=== PATIENT | female | born 1980 | race Caucasian/White ===

== ENCOUNTER 2016-12-31 19:50 | Emergency (ER) | payer OTHER ==
[2016-12-31 19:55] VITALS: BP 126/82
[2016-12-31] MEDS ORDERED: Ondansetron ODT TAB* 4 MG SL ONE (20:03)
--- NOTE | 2016-12-31 22:09 | UC ---
Rosaura Tineo Edward, scribed for Daryl Lieberman MD on 12/31/16 at 1958 . General HPI - HPI Summary HPI Summary: 36 y/o female presents to [facility] c/o vomiting every half an hour since 14:00 today. Patient c/o nausea for a few weeks before vomiting today. There is stomach pain right before vomiting and resolves after vomiting. Denies ABD pain , diarrhea, fever, chills, dysuria, vaginal discharge. NKDA. No PMHx. SHx liposuction. LNMP ended yesterday. - History of Current Complaint Chief Complaint: UCGI Stated Complaint: vomiting Hx Obtained From: Patient Onset/Duration: Sudden Onset, Lasting Hours - Since 14:00 today, Still Present Timing: Intermittent Episodes Lasting: - Vomiting every 30 minutes Pain Location at: No ABD pain Associated Signs & Symptoms: Positive: Nausea, Vomiting - Every 30. Associated stomach pain before vomiting, resolves after, Other - Negative: chills, vaginal discharge. Negative: Abdominal Pain, Diarrhea, Dysuria, Fever - Allergy/Home Medications Allergies/Adverse Reactions: Allergies Allergy/AdvReac Type Severity Reaction Status Date / Time CI Pigment Blue 63 Allergy See Comment Verified 12/31/16 19:56 [From Cymbalta] Duloxetine [From Cymbalta] Allergy See Comment Verified 12/31/16 19:56 PMH/Surg Hx/FS Hx/Imm Hx - Additional Past Medical History Additional PMH: Negative: DM, asthma, COPD, cardiac disorders, ulcers, HTN, Thyroid disease Previously Healthy: Yes - Surgical History Surgical History: Yes Surgery Procedure, Year, and Place: rhinoplasty 2004 - Family History Known Family History: Positive: Other - [place] - paternal and maternal grandmothers Negative: Cardiac Disease, Hypertension, Diabetes - Social History Occupation: Employed Full-time Lives: Alone Alcohol Use: Occasionally Substance Use Type: None Smoking Status (MU): Never Smoked Tobacco Review of Systems Constitutional: Negative - No fever, chills Skin: Negative Eyes: Negative ENT: Negative Respiratory: Negative Cardiovascular: Negative Gastrointestinal: Vomiting - Every 30 minutes. Associated stomach pain before vomiting, resolves after, Nausea - For a few weeks, Other - No ABD pain, no diarrhea Genitourinary: Negative - No dysuria, vaginal discharge Motor: Negative Neurovascular: Negative Musculoskeletal: Negative Neurological: Negative Psychological: Negative All Other Systems Reviewed And Are Negative: Yes Physical Exam Triage Information Reviewed: Yes Appearance: Well-Appearing, Ill-Appearing - Mild to moderately Vital Signs: Initial Vital Signs Temp 98.6 F 12/31/16 19:52 Pulse 109 12/31/16 19:52 Resp 18 12/31/16 19:52 BP 126/82 12/31/16 19:52 Pulse Ox 100 12/31/16 19:52 Vital Signs Reviewed: Yes Eyes: Positive: Conjunctiva Clear ENT: Positive: Normal ENT inspection Neck: Positive: Supple, Nontender Respiratory: Positive: Lungs clear, Normal breath sounds, No respiratory distress Cardiovascular: Positive: Tachycardia Abdomen Description: Positive: Nontender, Soft Bowel Sounds: Positive: Present Musculoskeletal Exam: Normal Musculoskeletal: Positive: Strength Intact, ROM Intact Neurological Exam: Normal Neurological: Positive: Alert Psychological Exam: Normal Psychological: Positive: Age Appropriate Behavior Skin Exam: Normal Re-Evaluation - Re-Evaluation 1 Re-Evaluation Time: 20:35 Change: Improved - Declines further workup. Patient will be discharged Course/Dx - Course Course Of Treatment: MEDICATIONS REVIEWED ON VISIT. IMPROVED AFTER ZOFRAN 4MG ODT. PATIENT FELT BETTER AND WISHED TO GO HOME. NO ABDOMINAL PAIN. I ADVISED HER TO GET EVALUATED IN THE ED IF SHE DOES NOT IMPROVE. - Differential Dx - Multi-Symptom Provider Diagnoses: VOMITING DEHYDRATION Discharge - Discharge Plan Condition: Stable Disposition: HOME Prescriptions: Ondansetron ODT TAB* [Zofran 4 MG Odt TAB*] 4 mg PO Q6H PRN #10 tab.odt PRN Reason: Nausea Patient Education Materials: Dehydration (ED), Acute Nausea and Vomiting (ED) Referrals: Dianna Delgado MD [Primary Care Provider] - Additional Instructions: FOLLOW UP WITH YOUR DOCTOR. GET RECHECKED FOR ANY WORSENING OF YOUR CONDITION; PAIN, FEVER, DEHYDRATION, QUESTIONS OR CONCERNS. The documentation as recorded by the Rosaura ward Edward accurately reflects the service I personally performed and the decisions made by me, Daryl Lieberman MD.
== END 2016-12-31 20:44 | disposition home or self-care (01) ==
LOC: UCEAST 19:50
DX: R11.10 Vomiting, unspecified (principal); E86.0 Dehydration
CPT/HCPCS: 99212; A9270-GY; G0463

== ENCOUNTER 2019-05-28 07:30 | Emergency (ER) | payer BC, OTHER ==
[2019-05-28 07:47] VITALS: BP 139/88
--- NOTE | 2019-05-28 08:11 | UC ---
Ear Complaint HPI - HPI Summary HPI Summary: 38-year-old female presents with complaints of left ear pain. Patient states that she has had cold-like symptoms including nasal congestion, runny nose, and occasional nonproductive cough for the past 5 days. Last night started with severe left ear pain that kept waking her from her sleep. Took NyQuil last night with little relief in symptoms. Denies fever, chills, hearing loss, tinnitus, vertigo, dizziness, ear drainage. - History of Current Complaint Chief Complaint: UCEar Stated Complaint: LEFT EAR PAIN, COLD Time Seen by Provider: 05/28/19 08:03 Hx Obtained From: Patient Hx Last Menstrual Period: 04/30/19 Pain Intensity: 8 - Allergies/Home Medications Allergies/Adverse Reactions: Allergies Allergy/AdvReac Type Severity Reaction Status Date / Time duloxetine [From Cymbalta] Allergy panic Verified 05/28/19 07:39 attack and vomiting PMH/Surg Hx/FS Hx/Imm Hx Previously Healthy: Yes - Denies significant PMH - Surgical History Surgical History: Yes Surgery Procedure, Year, and Place: rhinoplasty 2004 - Family History Known Family History: Positive: Cardiac Disease - [place] - paternal and maternal grandmothers - Social History Occupation: Employed Full-time Lives: With Family Alcohol Use: Occasionally Substance Use Type: None Smoking Status (MU): Never Smoked Tobacco Review of Systems All Other Systems Reviewed And Are Negative: Yes Constitutional: Negative: Fever, Chills Skin: Negative: Rash Eyes: Negative: Drainage, Eye Redness ENT: Positive: Ear Ache, Nasal Discharge, Sinus Congestion. Negative: Sore Throat, Sinus Pain/Tenderness Respiratory: Positive: Cough. Negative: Shortness Of Breath Cardiovascular: Negative: Palpitations, Chest Pain Gastrointestinal: Negative: Abdominal Pain, Vomiting, Diarrhea, Nausea Genitourinary: Positive: Negative Musculoskeletal: Positive: Negative Neurological: Positive: Negative Is Patient Immunocompromised?: No Physical Exam - Summary Physical Exam Summary: GENERAL APPEARANCE: Well developed, well nourished, alert and cooperative, and appears to be in no acute distress. EYES: Conjunctiva clear. No drainage. EARS: Right external auditory canal and tympanic membrane intact, opaque, with good cone of light. Left external auditory canal erythematous with mild- moderate edema. TM erythematous with mild effusion. Hearing grossly intact. NOSE: Mild-moderate nasal congestion. No nasal discharge. THROAT: Pharynx normal. No tonsilar inflammation, swelling, exudate, or lesions. Uvula midline. NECK: Neck supple, non-tender without lymphadenopathy. CARDIAC: Normal S1 and S2. No S3, S4 or murmurs. Rhythm is regular. There is no peripheral edema, cyanosis or pallor. Extremities are warm and well perfused. Capillary refill is less than 2 seconds. Peripheral pulses intact. LUNGS: Clear to auscultation without rales, rhonchi, wheezing or diminished breath sounds. ABDOMEN: Positive bowel sounds. Soft, nondistended, nontender. No guarding or rebound. No masses or hepatosplenomegally. MUSKULOSKELETAL: ROM intact to all extremities. No joint erythema or tenderness. Normal muscular development. Normal gait. SKIN: Skin normal color, texture and turgor with no lesions or eruptions. Triage Information Reviewed: Yes Vital Signs: Initial Vital Signs Temp 98.4 F 05/28/19 07:41 Pulse 88 05/28/19 07:41 Resp 16 05/28/19 07:41 BP 139/88 05/28/19 07:41 Pulse Ox 100 05/28/19 07:41 Vital Signs Reviewed: Yes Ear Complaint Course/Dx - Course Course Of Treatment: 38-year-old female presents with complaints of left ear pain. Patient states that she has had cold-like symptoms including nasal congestion, runny nose, and occasional nonproductive cough for the past 5 days. Last night started with severe left ear pain that kept waking her from her sleep. Took NyQuil last night with little relief in symptoms. Denies fever, chills, hearing loss, tinnitus, vertigo, dizziness, ear drainage. Afebrile. VSS. Exam was remarkable for mild-moderate nasal congestion, left external auditory canal erythematous with mild-moderate edema, and left TM erythematous with mild effusion. She was given ibuprofen 600 mg PO for pain. Will treat for left otitis media and otitis externa with amoxicillin 875 mg BID x 10 days as well as Ciprodex 4 drops twice a day for 7 days. She is to follow up with her PCP in 3 days if no improvement in symptoms. Anticipatory guidance and warning symptoms reviewed with patient. Verbalizes understanding and agrees with POC. - Differential Dx/Diagnosis Differential Diagnosis/HQI/PQRI: Otitis Externa, Otitis Media, Perforated TM, URI, Other - Serous otitis, eustachian tube dysfunction Provider Diagnosis: Otitis media of left ear, Otitis externa of left ear Discharge ED - Sign-Out/Discharge Documenting (check all that apply): Patient Departure All imaging exams completed and their final reports reviewed: No Studies - Discharge Plan Condition: Stable Disposition: HOME Prescriptions: Amoxicillin PO (*) [Amoxicillin 875 MG (*)] 875 mg PO BID #20 tab Ciproflox/Dexameth OTIC.SUSP* [Ciprodex OTIC.SUSP*] 4 drop .SEE ORDER BID 7 Days #1 btl Patient Education Materials: Ear Infection (ED) Referrals: Dianna Delgado MD [Primary Care Provider] - 3 Days Additional Instructions: Your history and exam are consistent with an ear infection. We will start you on a course of antibiotics to treat the infection. Start amoxicillin 875 mg 1 tab twice a day for 10 days. Start Ciprodex otic 4 drops into the affected ear twice a day for 7 days. Take acetaminophen (Tylenol) or ibuprofen (Advil, Motrin) according to directions as needed for pain. You were given a dose of ibuprofen in the clinic at around 8:30 am. Follow up with your primary care provider in 3 days if symptoms persist. Seek immediate medical attention in the emergency room if you have fever greater than 100.5 F despite taking acetaminophen or ibuprofen, drainage or bleeding from the ear, loss of hearing, or have any worsening of symptoms. - Billing Disposition and Condition Condition: STABLE Disposition: Home
[2019-05-28] MEDS ORDERED: Ibuprofen TAB* 600 MG PO ONE (08:20)
--- OUTSIDE RECORDS SUMMARY | 2019-05-28 09:00 | XMS REPORT | Continuity of Care Document ---
:1980 External Reference #:[id number] Author Name LEON Wolfe Address [address] [facility] [facility] [place] [address] Care Team Providers Name Role Phone Dianna Delgado M.D. 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 Onset: 06/03/2016 Social History Type Date Description Comments Sex Unknown Tobacco Use Start: Unknown Never Smoked Cigarettes ETOH Use Occasional 2-3x week Tobacco Use Start: Unknown Patient has never smoked Smoking Status Reviewed: 09/07/17 Patient has never smoked Allergies, Adverse Reactions, Alerts Active Allergies Reaction Severity Comments Date Cymbalta panic attack 06/03/2016 Medications Active Medications SIG Qnty Indications Ordering Provider Date Amoxicillin 1 tablet twice 14tabs J02.9 Christopher Contreras, 09/14/2018 875mg Tablets a day for 7 M.D. days. Cheratussin ac 5-10 mL po q 4 118ml Christopher Contreras, 09/14/2018 hrs prn cough M.D. 100-10mg/5ML Syrup mdd 20 mL Buspirone HCL take 1 tablet 60tabs F41.9 Amber Glass, 03/23/2018 7.5mg by mouth twice PATIENT ACCESS DIRECTOR Tablets a day Xanax XR 1 tab once a 30tabs Jennifer Cummings, 0.5mg Tablets ER day as needed [employer] 24HR Allergy Eye Drops 1 gtt each eye Unknown every day Multivitamin Adult 1 by mouth Unknown every day Tablets Immunizations CPT Code Status Date Vaccine Lot # [id number] Given 06/03/2016 Tdap Tetanus, W Pertussis [id number] Given 06/03/2016 Influenza Vac, Quadrivalent, Slit Virus, Im [id number] Vital Signs Date Vital Result Comment 09/14/2018 10:34am BP Systolic 120 mmHg BP Diastolic 90 mmHg Heart Rate 88 /min Body Temperature 101.0 F Respiratory Rate 18 /min Height 63.75 inches 5'3.75" measured 06/03/16 Weight 135.00 lb BMI (Body Mass Index) 23.4 kg/m2 04/20/2018 9:29am BP Systolic 120 mmHg BP Diastolic 82 mmHg Heart Rate 78 /min Body Temperature 97.9 F Respiratory Rate 16 /min Height 63.75 inches 5'3.75" measured 06/03/16 Weight 137.00 lb BMI (Body Mass Index) 23.7 kg/m2 Results Description No Information Available Procedures Description No Information Available Medical Devices Description No Information Available Encounters Description No Information Available Assessments Description No Information Available Plan of Treatment 09/14/2018 - Mahsa Alvarez, PAJ02.9 Acute pharyngitis, unspecifiedNew Medication:Amoxicillin 875 mg - 1 tablet twice a day for 7 days.Comments:Start antibiotic as prescribed. Supportive care. Tylenol or Ibuprofen for body aches, headache, fever. Can try Sambucol (Elderberry) Flu and Cold Relief tablets for sore throat and congestion. Salt water gargles can also offer relief.Rest, lots of fluids, and nutrient dense foods during this time.Daily allergy medications such as OTC loratadine/ Claritin, cetirizine/ Zyrtec, or fexofenadine/ Brigette (the least drowsy option) help decrease mucus production. For congestion: To help decrease postnasal drainage you can try Ipatropium Nasal Solution, 2 sprays each nostril up to 3x/ day as needed.Followed by Guaifenesin OTC Mucinex (1200 mg 2x/day) to help to loosen mucus. This can be especiallyhelpful before bedtime when the cough may be worse. Honey is a powerful mucolytic, 1 tsp 2-3/x day. Hot herbal teas with honey is also an option. Steaming your face in a hot shower or large pot of boiling water can offer relief from congestion. Put a towel over your head to add to the effect and breathe deeply. Add euclyptus, peppermint, mary essential oils or herbs to enhance the effect. Functional Status Description No Information Available Mental Status Description No Information Available Referrals Description No Information Available
--- OUTSIDE RECORDS SUMMARY | 2019-05-28 09:00 | XMS REPORT | Continuity of Care Document ---
:1980 External Reference #:[id number] Author Name DAGO Stapleton Address [address] [place] [address] Care Team Providers Name Role Phone Dianna Delgado MD Care Team Information Pediatric Acute Care Unit Nurse [phone] Problems Active Problems Provider Date Chronic allergic conjunctivitis Stiven Gar M.D. Onset: 10/22/2016 Allergic rhinitis Stiven Gar M.D. Onset: 10/22/2016 Body mass index 20-24 - normal Stiven Gar M.D. Onset: 10/22/2016 Social History Type Date Description Comments Sex Unknown ETOH Use Consumes 1-2 beers per week ETOH Use Drinks 5 Alcoholic Beverages Per Week ETOH Use Occasionally consumes alcohol ETOH Use Occasionally consumes beer ETOH Use Occasionally consumes wine ETOH Use Occasionally consumes liquor ETOH Use Consumes 1 glass of wine per week ETOH Use Consumes liquor 3 times per week Tobacco Use Start: Unknown Patient has never smoked Allergies, Adverse Reactions, Alerts Description No Known Drug Allergies Medications Active Medications SIG Qnty Indications Ordering Date Provider Olopatadine HCL 1 drop both eyes 5ml H10.45 Dennise Britney, 10/22/2016 0.1% twice a day as [employer] Solution needed Flonase Allergy 1 spray each 15.800ml Dennise Tan, Relief nostril everyday [employer] [employer] 50mcg/Act Suspension Cetirizine HCL 1 by mouth every Unknown 10mg day Tablets Medications Administered in Office Medication SIG Qnty Indications Ordering Provider Date Injection Allergy Injection 05/12/2019 Injection Injection Allergy Injection 04/28/2019 Injection Injection Allergy Injection 04/17/2019 Injection Injection Allergy Injection 03/03/2019 Injection Injection Allergy Injection 02/23/2019 Injection Injection Allergy Injection 12/01/2018 Injection Injection Allergy Injection 11/07/2018 Injection Injection Allergy Injection 10/26/2018 Injection Injection Allergy Injection 10/10/2018 Injection Injection Allergy Injection 09/26/2018 Injection Injection Allergy Injection 09/12/2018 Injection Injection Allergy Injection 08/04/2018 Injection Injection Allergy Injection 07/07/2018 Injection Injection Allergy Injection 06/06/2018 Injection Injection Allergy Injection 05/23/2018 Injection Injection Allergy Injection 05/11/2018 Injection Injection Allergy Injection 04/21/2018 Injection Injection Allergy Injection 04/04/2018 Injection Injection Allergy Injection 03/21/2018 Injection Injection Stiven Gar M.D. 03/07/2018 Injection Injection Allergy Injection 03/07/2018 Injection Injection Allergy Injection 02/18/2018 Injection Injection Allergy Injection 02/04/2018 Injection Injection Allergy Injection 01/17/2018 Injection Injection Allergy Injection 01/03/2018 Injection Injection Allergy Injection 12/16/2017 Injection Injection Allergy Injection 12/03/2017 Injection Injection Allergy Injection 11/17/2017 Injection Injection Allergy Injection 10/29/2017 Injection Injection Allergy Injection 10/11/2017 Injection Injection Allergy Injection 09/27/2017 Injection Injection Allergy Injection 09/13/2017 Injection Injection Allergy Injection 09/06/2017 Injection Injection Allergy Injection 08/23/2017 Injection Injection Allergy Injection 08/12/2017 Injection Injection Allergy Injection 08/04/2017 Injection Injection Stiven Gar M.D. 07/29/2017 Injection Injection Allergy Injection 07/29/2017 Injection Injection Allergy Injection 07/12/2017 Injection Injection Allergy Injection 07/05/2017 Injection Injection Allergy Injection 06/28/2017 Injection Injection Allergy Injection 06/16/2017 Injection Injection Allergy Injection 06/09/2017 Injection Injection Allergy Injection 05/27/2017 Injection Injection Allergy Injection 05/20/2017 Injection Injection Allergy Injection 05/12/2017 Injection Injection Allergy Injection 05/06/2017 Injection Injection Allergy Injection 04/28/2017 Injection Injection Allergy Injection 04/19/2017 Injection Injection Allergy Injection 04/12/2017 Injection Injection Allergy Injection 03/29/2017 Injection Injection Allergy Injection 03/22/2017 Injection Injection Allergy Injection 03/11/2017 Injection Injection Allergy Injection 03/01/2017 Injection Injection Stiven Gar M.D. 02/17/2017 Injection Injection Allergy Injection 02/17/2017 Injection Injection Allergy Injection 02/10/2017 Injection Injection Stiven Gar M.D. 01/25/2017 Injection Injection Allergy Injection 01/25/2017 Injection Injection Allergy Injection 01/15/2017 Injection Injection Allergy Injection 01/07/2017 Injection Injection Stiven Gar M.D. 12/24/2016 Injection Injection Allergy Injection 12/24/2016 Injection Injection Allergy Injection 12/17/2016 Injection Injection Stiven Gar M.D. 12/10/2016 Injection Injection Allergy Injection 12/10/2016 Injection Injection Allergy Injection 12/03/2016 Injection Injection Stiven Gar M.D. 11/26/2016 Injection Injection Allergy Injection 11/26/2016 Injection Injection Allergy Injection 11/12/2016 Injection Injection Stiven Gar M.D. 11/05/2016 Injection Injection Allergy Injection 11/05/2016 Injection Injection Allergy Injection 10/29/2016 Injection Immunizations Description No Information Available Vital Signs Date Vital Result Comment 05/12/2019 3:08pm Height 63.5 inches 5'3.50" Weight 137.00 lb Weight 62.143 kg Respiratory Rate 20 /min Heart Rate 82 /min O2 % BldC Oximetry 97 % BP Systolic 107 mmHg BP Diastolic 69 mmHg BMI (Body Mass Index) 23.9 kg/m2 11/26/2016 4:24pm Height 63.5 inches 5'3.50" Weight 142.00 lb Weight 64.411 kg Respiratory Rate 18 /min Heart Rate 96 /min O2 % BldC Oximetry 98 % BP Systolic 125 mmHg BP Diastolic 92 mmHg BMI (Body Mass Index) 24.8 kg/m2 Results Description No Information Available Procedures Date Code Description Status 05/12/2019 08234 Injection Completed 04/28/2019 34908 Injection Completed 04/17/2019 34526 Injection Completed 03/03/2019 18587 Injection Completed 02/23/2019 53534 Extract 1-10 Completed 02/23/2019 47628 Injection Completed 12/01/2018 31461 Injection Completed Medical Devices Description No Information Available Encounters Type Date Location Provider Dx Diagnosis Office Visit 05/12/2019 Og Tan, J30.1 Allergic rhinitis due 3:00p [employer] to pollen J30.2 Other seasonal allergic rhinitis J30.81 Allergic rhinitis due to animal (cat) (dog) hair and dander J30.89 Other allergic rhinitis Assessments Date Code Description Provider 05/12/2019 J30.1 Allergic rhinitis due to pollen PIERCE StapletonP-[facility] 05/12/2019 J30.1 Allergic rhinitis due to pollen Stiven Gar M.D. 05/12/2019 J30.2 Other seasonal allergic rhinitis Dennise Ulvanessa [employer] 05/12/2019 J30.1 Allergic rhinitis due to pollen Allergy Injection 05/12/2019 J30.81 Allergic rhinitis due to animal (cat) Dennise Ulvanessa [employer] [facility] (dog) hair and dander 05/12/2019 J30.2 Other seasonal allergic rhinitis Stiven Gar M.D. 05/12/2019 J30.89 Other allergic rhinitis Dennise Ulvanessa [employer] 05/12/2019 J30.2 Other seasonal allergic rhinitis Allergy Injection 05/12/2019 J30.81 Allergic rhinitis due to animal (cat) Stiven Gar M.D. (dog) hair and dander 05/12/2019 J30.81 Allergic rhinitis due to animal (cat) Allergy Injection (dog) hair and dander 05/12/2019 J30.89 Other allergic rhinitis Stiven Gar M.D. 05/12/2019 J30.89 Other allergic rhinitis Allergy Injection 04/28/2019 J30.1 Allergic rhinitis due to pollen Stiven Gar M.D. 04/28/2019 J30.1 Allergic rhinitis due to pollen Allergy Injection 04/28/2019 J30.2 Other seasonal allergic rhinitis Stiven Gar M.D. 04/28/2019 J30.2 Other seasonal allergic rhinitis Allergy Injection 04/28/2019 J30.81 Allergic rhinitis due to animal (cat) Stiven Gar M.D. (dog) hair and dander 04/28/2019 J30.81 Allergic rhinitis due to animal (cat) Allergy Injection (dog) hair and dander 04/28/2019 J30.89 Other allergic rhinitis Stiven Gar M.D. 04/28/2019 J30.89 Other allergic rhinitis Allergy Injection 04/17/2019 J30.1 Allergic rhinitis due to pollen Stiven Gar M.D. 04/17/2019 J30.1 Allergic rhinitis due to pollen Allergy Injection 04/17/2019 J30.2 Other seasonal allergic rhinitis Stiven Gar M.D. 04/17/2019 J30.2 Other seasonal allergic rhinitis Allergy Injection 04/17/2019 J30.81 Allergic rhinitis due to animal (cat) Stiven Gar M.D. (dog) hair and dander 04/17/2019 J30.81 Allergic rhinitis due to animal (cat) Allergy Injection (dog) hair and dander 04/17/2019 J30.89 Other allergic rhinitis Stiven Gar M.D. 04/17/2019 J30.89 Other allergic rhinitis Allergy Injection 03/03/2019 J30.1 Allergic rhinitis due to pollen Stiven Gar M.D. 03/03/2019 J30.1 Allergic rhinitis due to pollen Allergy Injection 03/03/2019 J30.2 Other seasonal allergic rhinitis Stiven Gar M.D. 03/03/2019 J30.2 Other seasonal allergic rhinitis Allergy Injection 03/03/2019 J30.81 Allergic rhinitis due to animal (cat) Stiven Gar M.D. (dog) hair and dander 03/03/2019 J30.81 Allergic rhinitis due to animal (cat) Allergy Injection (dog) hair and dander 03/03/2019 J30.89 Other allergic rhinitis Stiven Gar M.D. 03/03/2019 J30.89 Other allergic rhinitis Allergy Injection 02/23/2019 J30.1 Allergic rhinitis due to pollen Stiven Gar M.D. 02/23/2019 J30.1 Allergic rhinitis due to pollen Allergy Injection 02/23/2019 J30.2 Other seasonal allergic rhinitis Stiven Gar M.D. 02/23/2019 J30.2 Other seasonal allergic rhinitis Allergy Injection 02/23/2019 J30.81 Allergic rhinitis due to animal (cat) Stiven Gar M.D. (dog) hair and dander 02/23/2019 J30.81 Allergic rhinitis due to animal (cat) Allergy Injection (dog) hair and dander 02/23/2019 J30.89 Other allergic rhinitis Stiven Gar M.D. 02/23/2019 J30.89 Other allergic rhinitis Allergy Injection 12/01/2018 J30.1 Allergic rhinitis due to pollen Stiven Gar M.D. 12/01/2018 J30.1 Allergic rhinitis due to pollen Allergy Injection 12/01/2018 J30.2 Other seasonal allergic rhinitis Stiven Gar M.D. 12/01/2018 J30.2 Other seasonal allergic rhinitis Allergy Injection 12/01/2018 J30.81 Allergic rhinitis due to animal (cat) Stiven Gar M.D. (dog) hair and dander 12/01/2018 J30.81 Allergic rhinitis due to animal (cat) Allergy Injection (dog) hair and dander 12/01/2018 J30.89 Other allergic rhinitis Stiven Gar M.D. 12/01/2018 J30.89 Other allergic rhinitis Allergy Injection Plan of Treatment 05/12/2019 - DEB Stapleton-CJ30.1 Allergic rhinitis due to mbuterD21.2 Other seasonal allergic ynlbmutrR24.81 Allergic rhinitis due to animal (cat) ( dog) hair and jtdsmaJ05.89 Other allergic rhinitisFollow up:1 yearRecommendations:Continue all medications as prescribed.Refrain from wearing perfumes/scented colognes while visitingour office. Continue the Flonase 2 sprays daily Continue the cetirizine 1 daily Continue the Pataday 1 drop daily each eye. Think about an air purifier for your office Keep the cat out of your bedroom Functional Status Description No Information Available Mental Status Description No Information Available Referrals Description No Information Available
== END 2019-05-28 08:33 | disposition home or self-care (01) ==
LOC: UCEAST 07:30
DX: H66.92 Otitis media, unspecified, left ear (principal); H60.92 Unspecified otitis externa, left ear; R09.81 Nasal congestion; R05 Cough; R09.89 Other specified symptoms and signs involving the circulatory and respiratory systems; Z88.8 Allergy status to other drugs, medicaments and biological substances
CPT/HCPCS: 99212; A9270-GY; G0463